=== PATIENT | female | born 1980 | race Caucasian/White ===

== ENCOUNTER 2025-09-29 18:17 | Emergency (ER) | payer MEDICAID, OTHER ==
[~2025-09-29] VITALS: Ht 165.1 cm; Wt 135.0 kg
[2025-09-29 19:35] VITALS: PULSE 65; RESP 16; TEMP 97.9; O2SAT 97
--- NOTE | 2025-09-29 19:51 | ED.PDOC ---
History of Present Illness HPI Comments 45 y/o morbidly obese F presents from urgent care for c/c of hypertensions, with associated headache. Patient reports on being referred to ED due to being found with elevated blood pressure levels after endorsing on having a headache during drug-screen visit, earlier, today. Only reported history of chronic headaches and takes no medications, currently. Upon arrival to ED, patient was found with a blood pressure of 204/104. Chief Complaint: High Blood Pressure Time Seen by MD: 19:00 Reviewed Notes: Nurses Notes, Medications, Allergies Allergies: Coded Allergies: Acetaminophen (Verified Allergy, Unknown, 09/29/25) Codeine (Verified Allergy, Unknown, 09/29/25) Hydrocodone (Verified Allergy, Unknown, 09/29/25) Information Source: Patient Mode of Arrival: Ambulatory Severity: Moderate Timing: Hours Duration: Since onset Prehospital treatment: None Past Medical History Past Medical History (Other): chronic headaches Surgical History: Denies all surgeries STUDENT EDUCATION SPECIALIST History: No Pertinent STUDENT EDUCATION SPECIALIST History Family History Family History: Unknown Social History Smoker: Non-Smoker Alcohol: Denies ETOH Use Drugs: Denies Drug Use Lives In: Home All Other Systems: Reviewed and Negative (As per HPI) Physical Exam General Appearance: No Apparent Distress, Obese HEENT: Normal ENT Inspection, Pharynx Normal, TMs Normal Neck: Full Range of Motion, Non-Tender, Normal, Normal Inspection Respiratory: Chest Non-Tender, Lungs Clear, No Accessory Muscle Use, No Respiratory Distress, Normal Breath Sounds Cardiovascular: No Edema, No JVD, No Murmur, No Gallop, Normal Peripheral Pulses, Regular Rate/Rhythm Breast Exam: Deferred Gastrointestinal: No Organomegaly, Non Tender, No Pulsatile Mass, Normal Bowel Sounds, Soft Genitalia: Deferred Pelvic: Deferred Rectal: Deferred Extremities: No calf tenderness, Normal capillary refill, Normal inspection, Normal range of motion, Non-tender, No pedal edema Musculoskeletal : Apperance: Normal Neurologic: Alert, 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 Was a procedure done?: No Differential Dx Considerations may include: hypertensive emergency, dehydration, electrolyte imbalance, hypertension - new onset, aneurysm, among others X-Ray, Labs, Meds, VS Vital Signs Date Time Temp Pulse Resp B/P (MAP) Pulse Ox O2 Delivery O2 Flow Rate FiO2 09/29/25 21:10 149/67 (94) 09/29/25 19:35 65 16 09/29/25 19:35 97.9 65 16 196/89 (124) 97 97.9 09/29/25 19:32 196/89 09/29/25 18:42 97.2 72 18 204/104 96 97.2 Lab Test 09/29/25 19:25 Range/Units POC Glucose 183 H 70-106 mg/dl Current Medications Medications (Trade) Dose Ordered Sig/Kris Route Start Time Stop Time Status Last Admin Hydralazine HCl (Apresoline Tablet) 25 mg ONCE ONCE PO 09/29/25 19:15 09/29/25 19:35 DC 09/29/25 19:32 X-Ray, Labs, Meds, VS Comment Good improvement of the blood pressure after hydralazine Patient states she was prescribed lisinopril 20 mg twice a day by Dr. Carrillo office, states the prescription was sent to the pharmacy. 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 Time of 1ST Reevaluation: 19:30 Reevaluation 1ST: Unchanged Patient Education/Counseling: Diagnosis, Treatment, Need For Follow Up (Follow up with PCP next available appointment. Return to the emergency department if symptoms worsen.) Family Education/Counseling: No Family Present SEPSIS Sepsis Screen Date sepsis recognized/suspect: Sep 29, 2025 Time Sepsis recognized/suspect: 1841 Recent Procedure: No On Antibiotic Therapy: No Respiratory Rate >20: No Heart Rate >90: No Temp<36 C (96.8 F) or >38.3 C: No SBP <90 or MAP <65 mmHG: No New Acute Mental Status Change: No Is the patient on CPAP, BIPAP,: No Physician Orders Blood Glucose Assessment (09/29/25 19:10) Vital Signs Date Time Temp Pulse Resp B/P (MAP) Pulse Ox O2 Delivery O2 Flow Rate FiO2 09/29/25 21:10 149/67 (94) 09/29/25 19:35 65 16 09/29/25 19:35 97.9 65 16 196/89 (124) 97 97.9 09/29/25 19:32 196/89 09/29/25 18:42 97.2 72 18 204/104 96 97.2 Medications Medications Dose Ordered Sig/Kris Route Start Time Stop Time Status Last Admin Dose Admin Hydralazine HCl 25 mg ONCE ONCE PO 09/29/25 19:15 09/29/25 19:35 DC 09/29/25 19:32 Departure 1 Departure Time of Disposition: 21:16 Impression: Primary Impression: Hypertension Qualified Codes: I10 - Essential (primary) hypertension Disposition: 01 HOME / SELF CARE / HOMELESS Condition: Stable Discharged With: Self Critical Care Note Critical Care Time?: No Stability Stability form required: No Heart Score Heart Score: Heart Score Response (Comments) Value History N/A 0 EKG N/A 0 Age N/A 0 Risk Factors N/A 0 Troponin N/A 0 Total 0 I personally scribed for JEANCARLOS JETER ([email or web address]) on 09/29/25 at 19:51. Electronically submitted by Jonas Joel ([email or web address]). JEANCARLOS JETER Sep 29, 2025 19:51
[2025-09-29 21:10] VITALS: BP 149/67
== END 2025-09-29 21:39 | disposition home or self-care (01) ==
LOC: ER 18:17
DX: I10 Essential (primary) hypertension (principal); Z88.5 Allergy status to narcotic agent; Z79.899 Other long term (current) drug therapy
CPT/HCPCS: 82947; 82962

== ENCOUNTER 2025-10-01 06:50 | Emergency (ER) | payer SELFPAY ==
[~2025-10-01] VITALS: Ht 165.1 cm; Wt 137.7 kg
--- NOTE | 2025-10-01 07:24 | ED.PDOC ---
History of Present Illness HPI Comments 45-year-old female presents to the ER w/ prior medical history of diabetes, chronic headache and the chief complaint of past of CP. Pt reports on having had left-sided chest pain two days ago which prompted the patient to go to urgent care for which was informed that her blood pressure was too high in was referred to the ER and was prescribed antibiotics. Patient came in today due from having had taken the antibiotics for the past two days, but currently has a sudden onset of right-sided headache and left-sided chest pain. Denies any other symptoms at this time. Denies chills, fever, N/V/D, SOB. No other associated symptoms, modifiers, recent injuries or sick contacts present at this time. Chief Complaint: Chest Pain Time Seen by MD: 06:35 Reviewed Notes: Nurses Notes, Medications, Allergies Allergies: Coded Allergies: Acetaminophen (Verified Allergy, Unknown, 09/29/25) Codeine (Verified Allergy, Unknown, 09/29/25) Hydrocodone (Verified Allergy, Unknown, 09/29/25) Information Source: Patient Mode of Arrival: Ambulatory Severity: Moderate Timing: Hours Duration: Since onset, Hours Prehospital treatment: None Past Medical History PAST MEDICAL HISTORY: DM Past Medical History (Other): Chronic headaches Surgical History: Denies all surgeries DIRECTOR OF ADVERTISING SALES History: No Pertinent DIRECTOR OF ADVERTISING SALES History Family History Family History: Reviewed,noncontributory to illness, Unknown Social History Smoker: Other (Vape) Alcohol: Denies ETOH Use Drugs: Denies Drug Use Lives In: Home Constitutional: denies: chills, diaphoresis, fatigue, fever, malaise, sweats, weakness, others EENTM: denies: blurred vision, double vision, ear bleeding, ear discharge, ear drainage, ear pain, ear ringing, eye pain, eye redness, hearing loss, mouth pain, mouth swelling, nasal discharge, nose bleeding, nose congestion, nose pain, photophobia, tearing, throat pain, throat swelling, voice changes, others Respiratory: denies: cough, hemoptysis, orthopnea, SOB at rest, shortness of breath, SOB with excertion, stridor, wheezing, others Cardiovascular: denies: chest pain, dizzy spells, diaphoresis, Dyspnea on exertion, edema, irregular heart beat, left arm pain, lightheadedness, palpitations, PND, syncope, others Gastrointestinal: denies: abdomen distended, abdominal pain, blood streaked bowels, constipated, diarrhea, dysphagia, difficulty swallowing, hematemesis, melena, nausea, poor appetite, poor fluid intake, rectal bleeding, rectal pain, vomiting, others Genitourinary: denies: abnormal vagina bleeding, burning, dyspareunia, dysuria, flank pain, frequency, hematuria, incontinence, pain, , vagina discharge, urgency, others Neurological: denies: dizziness, fainting, headache, left sided numbness, left sided weakness, numbness, paresthesia, pre-existing deficit, right sided numbness, right sided weakness, seizure, speech problems, tingling, tremors, weakness, others Musculoskeletal: denies: back pain, gout, joint pain, joint swelling, muscle pain, muscle stiffness, neck pain, others Integumetry: denies: bruises, change in color, change in hair/nails, dryness, laceration, lesions, lumps, rash, wounds, others Allergic/Immunocompromised: denies: Difficulty Healing, Frequent Infections, Hives, Itching, others Hematologic/Lymphatic: denies: anemia, blood clots, easy bleeding, easy bruising, swollen glands, others Endocrine: denies: excessive hunger, excessive sweating, excessive thirst, excessive urination, flushing, intolerance to cold, intolerance to heat, unexplained weight gain, unexplained weight loss, others Psychiatric: denies: anxiety, bipolar disorder, depression, hopeless, panic disorder, schizophrenia, sleepless, suicidal, others All Other Systems: Reviewed and Negative Physical Exam General Appearance: Moderate Distress, Normal HEENT: Normal ENT Inspection, Pharynx Normal, TMs Normal Neck: Full Range of Motion, Non-Tender, Normal, Normal Inspection Respiratory: Chest Non-Tender, Lungs Clear, No Accessory Muscle Use, No Respiratory Distress, Normal Breath Sounds Cardiovascular: No Edema, No JVD, No Murmur, No Gallop, Normal Peripheral Pulses, Regular Rate/Rhythm Breast Exam: Deferred Gastrointestinal: No Organomegaly, Non Tender, No Pulsatile Mass, Normal Bowel Sounds, Soft Genitalia: Deferred Pelvic: Deferred Rectal: Deferred Extremities: No calf tenderness, Normal capillary refill, Normal inspection, Normal range of motion, Non-tender, No pedal edema Musculoskeletal : Apperance: Normal Neurologic: Alert, 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 Was a procedure done?: No EKG EKG : Pulse Rate (adult): 65 [place]: Normal Cardiac Rhythm: NSR (Low voltage) Block: None Hypertrophy: None ST: Normal Differential Dx Considerations may include: Anemia Electrolyte imbalance X-Ray, Labs, Meds, VS Vital Signs Date Time Temp Pulse Resp B/P (MAP) Pulse Ox O2 Delivery O2 Flow Rate FiO2 10/01/25 10:06 62 10/01/25 10:04 65 10/01/25 09:53 97.7 66 16 149/75 (99) 100 97.7 10/01/25 08:40 183/85 10/01/25 08:34 183/85 10/01/25 08:05 64 10/01/25 07:42 62 16 147/76 (99) 100 10/01/25 07:42 62 10/01/25 07:40 147/76 10/01/25 07:06 65 10/01/25 07:03 97.2 71 18 186/101 97 97.2 Lab Test 10/01/25 08:15 10/01/25 07:49 10/01/25 07:18 Range/Units Troponin I High Sensitivity 4 4 </=34 ng/L Urine Color Colorless Yellow Urine Clarity Clear Clear Urine pH 5.5 5.0-9.0 Urine Specific [place] 1.003 1.001-1.035 Urine Protein Negative Negative Urine Ketones Negative Negative Urine Blood 1+ H Negative /uL Urine Nitrite Negative Negative Urine Bilirubin Negative Negative Urine Urobilinogen Normal Negative mg/dL Urine Leukocyte Esterase Negative Negative /uL Urine RBC <1 0 - 4 /hpf Urine Microscopic WBC < 1 0-5 /HPF Urine Squamous Epithelial Cells Few <5 /hpf Urine Bacteria Few H None Seen /hpf Urine Glucose Normal Normal mg/dL White Blood Count 7.2 4.4-10.8 10^3/uL Red Blood Count 4.51 4.0-5.20 10^6/uL Hemoglobin 14.1 12.2-16.2 g/dL Hematocrit 41.9 36.0-46.0 % Mean Corpuscular Volume 92.9 80.0-100.0 fL Mean Corpuscular Hemoglobin 31.3 28.0-32.0 pg Mean Corpuscular Hemoglobin Concent 33.7 32.0-36.0 g/dL Red Cell Distribution Width 13.9 11.8-14.3 % Platelet Count 287 140-450 10^3/uL Mean Platelet Volume 9.1 6.9-10.8 fL Neutrophils (%) (Auto) 64.9 37.0-80.0 % Lymphocytes (%) (Auto) 21.7 10.0-50.0 % Monocytes (%) (Auto) 6.4 0.0-12.0 % Eosinophils (%) (Auto) 6.2 0.0-7.0 % Basophils (%) (Auto) 0.8 0.0-2.0 % Neutrophils # (Auto) 4.7 1.6-8.6 10 ^3/uL Lymphocytes # (Auto) 1.6 0.4-5.4 10 ^3/uL Monocytes # (Auto) 0.5 0-1.3 10 ^3/uL Eosinophils # (Auto) 0.4 0-0.8 10 ^3/uL Basophils # (Auto) 0.1 0-0.2 10 ^3/uL Nucleated Red Blood Cells 0.0 % Sodium Level 139 136-145 mmol/L Potassium Level 4.4 3.5-5.1 mmol/L Chloride Level 107 98-107 mmol/L Carbon Dioxide Level 24 20-31 mmol/L Anion Gap 8 5-15 Blood Urea Nitrogen 17 9-23 mg/dL Creatinine 0.78 0.550-1.02 mg/dL Glomerular Filtration Rate Calc 95 >90 mL/min BUN/Creatinine Ratio 21.8 H 10.0-20.0 Serum Glucose 226 H 74-106 mg/dL Calcium Level 9.6 8.7-10.4 mg/dL Current Medications Medications (Trade) Dose Ordered Sig/Kris Route Start Time Stop Time Status Last Admin Aspirin 325 mg ONCE ONCE PO 10/01/25 07:15 10/01/25 07:16 DC 10/01/25 07:40 Nitroglycerin (Ntrostat Sublingual) 0.4 mg ONCE ONCE SL 10/01/25 07:15 10/01/25 07:16 DC 10/01/25 07:40 Hydralazine HCl (Apresoline Tablet) 20 mg ONCE ONCE PO 10/01/25 07:15 10/01/25 07:17 DC 10/01/25 08:40 Patient alert. Came in because of chest pain. Blood pressure elevated. Vitals stable. She was seen here few days ago for the same symptom. She was given hydralazine. She has been aspirin. Was given nitro. Abdomen is soft nontender. No leg swelling. No shortness a breath. Cardiac marker within normal limits. No acute process. Ambulating without difficulty. EKG reviewed does not show any acute changes. Denies chest pain on re-evaluation. States that she is feeling much better. Explained to the patient she does have risk factors for which she does not need a stress test. Was told to follow up with her primary care physician. Was told to come back if there is any problem. Time of 1ST Reevaluation: 07:04 Reevaluation 1ST: Unchanged Patient Education/Counseling: Diagnosis, Treatment, Prognosis Family Education/Counseling: No Family Present SEPSIS Sepsis Screen Physician Orders Chest Portable (10/01/25 07:02) Vital Signs Date Time Temp Pulse Resp B/P (MAP) Pulse Ox O2 Delivery O2 Flow Rate FiO2 10/01/25 10:06 62 10/01/25 10:04 65 10/01/25 09:53 97.7 66 16 149/75 (99) 100 97.7 10/01/25 08:40 183/85 10/01/25 08:34 183/85 10/01/25 08:05 64 10/01/25 07:42 62 16 147/76 (99) 100 10/01/25 07:42 62 10/01/25 07:40 147/76 10/01/25 07:06 65 10/01/25 07:03 97.2 71 18 186/101 97 97.2 Laboratory Tests Test 10/01/25 07:18 White Blood Count 7.2 10^3/uL (4.4-10.8) Medications Medications Dose Ordered Sig/Kris Route Start Time Stop Time Status Last Admin Dose Admin Aspirin 325 mg ONCE ONCE PO 10/01/25 07:15 10/01/25 07:16 DC 10/01/25 07:40 Hydralazine HCl 20 mg ONCE ONCE PO 10/01/25 07:15 10/01/25 07:17 DC 10/01/25 08:40 Nitroglycerin 0.4 mg ONCE ONCE SL 10/01/25 07:15 10/01/25 07:16 DC 10/01/25 07:40 Departure 1 Departure Time of Disposition: 07:30 Impression: Primary Impression: Hypertensive emergency Additional Impression: Hyperglycemia Disposition: 01 HOME / SELF CARE / HOMELESS Condition: Good Discharged With: Self Critical Care Note Critical Care Time?: No Stability Stability form required: No I personally scribed for BLAYNE CURIEL MD ([email or web address]) on 10/01/25 at 07:24. Electronically submitted by Jovanni Ramsey ([email or web address]). I personally scribed for BLAYNE CURIEL MD ([email or web address]) on 10/01/25 at 10:04. Electronically submitted by Jovanni Ramsey ([email or web address]). BLAYNE CURIEL MD Oct 01, 2025 07:24
[2025-10-01 07:32] LABS: Hematocrit 41.9 % (36.0-46.0); Hemoglobin 14.1 g/dL (12.2-16.2); Mean Corpuscular Hemoglobin 31.3 pg (28.0-32.0); Mean Corpuscular Volume 92.9 fL (80.0-100.0); Nucleated Red Blood Cells % 0.0 %
[2025-10-01 07:34] LABS: Potassium 4.4 mmol/L (3.5-5.1); Sodium 139 mmol/L (136-145)
[2025-10-01 07:35] LABS: Anion Gap 8 (5-15); Carbon Dioxide 24 mmol/L (20-31)
[2025-10-01 07:36] LABS: Calcium 9.6 mg/dL (8.7-10.4); Chloride 107 mmol/L (98-107)
[2025-10-01 07:40] LABS: BUN/Creatinine Ratio 21.8 (10.0-20.0); Blood Urea Nitrogen 17 mg/dL (9-23)
[2025-10-01] MEDS: NITROGLYCERIN 0.4 MG SL TAB SL ONE (07:40)
[2025-10-01 07:47] LABS: Glucose 226 mg/dL (74-106)
--- NOTE | 2025-10-01 08:46 | DVH ---
CLINICAL HISTORY: CHEST PAIN TECHNIQUE: Single view of the chest was obtained. COMPARISON: None FINDINGS: The heart size and pulmonary vasculature are normal. The lungs are clear. IMPRESSION: NO ACUTE CARDIOPULMONARY PROCESS.
[2025-10-01 09:37] LABS: Urine Protein, UAD Negative (Negative)
[2025-10-01 09:53] VITALS: BP 149/75; RESP 16; TEMP 97.7; O2SAT 100
[2025-10-01 10:06] VITALS: PULSE 62
--- NOTE | 2025-10-01 10:15 | ECG ---
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
--- NOTE | 2025-10-01 10:15 | ECG ---
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
--- NOTE | 2025-10-01 10:16 | ECG ---
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
== END 2025-10-01 10:35 | disposition home or self-care (01) ==
LOC: ER 06:50
DX: I16.1 Hypertensive emergency (principal); R07.89 Other chest pain; E11.65 Type 2 diabetes mellitus with hyperglycemia; F17.290 Nicotine dependence, other tobacco product, uncomplicated; Z88.5 Allergy status to narcotic agent
CPT/HCPCS: 36415; 71045; 80048; 81001; 84484; 85025; 93005